=== PATIENT | female | born 1940 | race Caucasian/White ===

== ENCOUNTER 2018-12-26 06:15 | Day surgery (SDC) | payer OTHER ==
[~2018-12-26 06:15] MED LIST: ASA81 MG PO; ATORVASTATIN CA40 MG PO
== END 2018-12-26 10:40 | disposition home or self-care (01) ==
LOC: AMB-ENDOS 06:15
DX: K57.30 Diverticulosis of large intestine without perforation or abscess without bleeding (principal)

== ENCOUNTER 2020-01-22 08:32 | Day surgery (SDC) | payer OTHER | END 2020-01-22 13:15 | disposition home or self-care (01) | LOC: AMB-ENDOS 08:32 | PROVIDERS: ATTEND Surgery | DX: C18.7 Malignant neoplasm of sigmoid colon (principal); Z20.828 Contact with and (suspected) exposure to other viral communicable diseases ==

== ENCOUNTER 2020-03-12 10:45 | Inpatient (IN) | payer OTHER ==
[~2020-03-12] VITALS: Ht 167.6 cm; Wt 71.7 kg
[2020-03-12] MEDS ORDERED: CENTRUM ADULTS1 EACH PO (13:22)
[2020-03-12] MEDS ORDERED: PREVISION (13:22)
[2020-03-19] MEDS ORDERED: SYSTANE ULTRA 010 ML (13:54)
[2020-03-19] MEDS ORDERED: AMLODIPINE BESYL5 MG (13:54)
[2020-03-19] MEDS ORDERED: RESTORIL15 MG (13:54)
[2020-03-19] MEDS ORDERED: CENTRUM SILVER1 EAC2 (13:55)
[2020-03-19] MEDS ORDERED: SMOOTHLAX238 GM (13:57)
[2020-03-19] MEDS ORDERED: PRESERVISION A1 EAC1 (13:58)
[2020-03-22] MEDS ORDERED: PERCOCET 5-3251 EACH PO (10:26)
[2020-03-22] MEDS ORDERED: PRILOSEC OTC20 MG PO (10:26)
== END 2020-03-22 12:39 | disposition home or self-care (01) | DRG 331 ==
LOC: SURH 03-19 06:45 → O/R 03-19 07:03 → SURG 03-19 07:03 → SURH 03-19 07:03 → SURG 03-20 13:19
PROVIDERS: ADMIT Surgery; ATTEND Surgery
PROC: 07BC4ZZ Excision of Pelvis Lymphatic, Percutaneous Endoscopic Approach (ICD-10-PCS; 2020-03-19)
PROC: 0DBN4ZZ Excision of Sigmoid Colon, Percutaneous Endoscopic Approach (ICD-10-PCS; principal; 2020-03-19 06:45)
DX: C19 Malignant neoplasm of rectosigmoid junction (principal); R59.0 Localized enlarged lymph nodes; K59.09 Other constipation